=== PATIENT | male | born 1955 | race Caucasian/White ===

== ENCOUNTER 2020-08-07 07:52 | Outpatient (CLI) | payer BC ==
[2020-08-07 14:23] LABS: SARS-CoV-2 PCR by NAA Not Detected (NotDetected)
== END 2020-08-07 07:53 | disposition home or self-care (01) ==
LOC: CSHLAB 07:52
PROVIDERS: ATTEND Internal Medicine Gastroenterology
DX: Z20.822 Contact with and (suspected) exposure to COVID-19 (principal); K21.9 Gastro-esophageal reflux disease without esophagitis; Z12.11 Encounter for screening for malignant neoplasm of colon
CPT/HCPCS: 87635; U0003; U0005

== ENCOUNTER 2020-08-12 06:55 | Day surgery (SDC) | payer BC ==
[2020-08-11 13:50] VITALS: BMI 29.8
[2020-08-12] MEDS ORDERED: Lidocaine 1% MPF 2 ML VIAL ONE (08:38)
[2020-08-12] MEDS ORDERED: PROPOFOL 20 ML ONE ×2 (09:04→09:21)
[2020-08-12] MEDS ORDERED: Lidocaine 1% PF 5 ML VIAL ONE (09:10)
[2020-08-12] MEDS ORDERED: Fentanyl 100 MCG/2 ML VIAL ONE (09:14)
[2020-08-12] MEDS ORDERED: ePHEDrine 50 MG/ML VIAL ONE (09:44)
== END 2020-08-12 10:45 | disposition home or self-care (01) ==
LOC: CSHSDC 06:55
PROVIDERS: ATTEND Internal Medicine Gastroenterology
PROC: 0D758ZZ Dilation of Esophagus, Via Natural or Artificial Opening Endoscopic (ICD-10-PCS; principal; 2020-08-12)
DX: Z12.11 Encounter for screening for malignant neoplasm of colon (principal); K22.70 Barrett's esophagus without dysplasia; D12.8 Benign neoplasm of rectum; D12.5 Benign neoplasm of sigmoid colon; K44.9 Diaphragmatic hernia without obstruction or gangrene; K25.9 Gastric ulcer, unspecified as acute or chronic, without hemorrhage or perforation
CPT/HCPCS: 88305; J2704; J3010; J3490

== ENCOUNTER → 2022-11-11 | Day surgery (SDC) | payer OTHER ==
[~2022-11-11] MED LIST: Adenosine 6 MG/2 ML VIAL ONE; Atropine Sulfate 0.4 mg/1 ml Vial ONE; Heparin 10,000 UNITS/ 10 ML VIAL ONE; Iopamidol 300 61% 100 ML VIAL FS ONE; Labetalol HCl 100 MG/20 ML VIAL ONE; Labetalol HCl 200 MG, Admixture Fee 1 EACH in Sodium Chloride 0.9% 250 ML 160 ML IVPB SCH; Ondansetron PF 4 MG/2 ML Vial ONE; PHENYLEPHRINE-NS 100 MCG/ML 10 ML SYRINGE ONE; Protamine Sulfate 250 MG/25 ML VIAL ONE; fentaNYL 50 mcg/mL 1 mL Vial ONE; niCARdipine 25 MG/10 ML SDV ONE
== END ==
LOC: CSHCCL 15:52
PROVIDERS: ATTEND Internal Medicine Cardiovascular Disease
DX: I21.9 Acute myocardial infarction, unspecified (principal); I23.7 Postinfarction angina; I10 Essential (primary) hypertension
CPT/HCPCS: 85347; 92941; 92978; 93458; 99152; 99153; C1726; C1753; C1769; C1874; C9606; J0153; J0461; J1644; J2405; J2720; J3010; J7050; Q9967